=== PATIENT | male | born 2000 | race African-American/Black ===

== ENCOUNTER 2019-10-16 20:29 | Emergency (ER) | payer OTHER ==
[~2019-10-16] VITALS: Ht 188 cm; Wt 79.5 kg
[~2019-10-16 20:29] MED LIST: NOCURR
[2019-10-16] MEDS ORDERED: CeFAZolin 1 GM/DEXTROSE 100 ML IV ONE (20:40)
[2019-10-16] MEDS ORDERED: MORPHINE SULFATE 4 MG/ML SYRINGE IVP ONE (20:45)
[2019-10-16] MEDS: CeFAZolin 1 GM/DEXTROSE 50 ML IV SCH ×2 (20:45→20:47)
[2019-10-16] MEDS ORDERED: PERTUSS(ACELL),DIPH,TET VAC/PF 0.5 ML VIAL IM ONE (20:45)
[2019-10-16] MEDS ORDERED: ONDANSETRON HCL 4 MG/2 ML VIAL IVP ONE (20:45)
[2019-10-16] MEDS ORDERED: CeFAZolin 2 GM/DEXTROSE 50 ML IV ONE (20:45)
[2019-10-16 20:52] VITALS: BP 131/73
== END 2019-10-16 20:48 | disposition short-term general hospital (02) ==
LOC: EMS 20:31
DX: S81.811A Laceration without foreign body, right lower leg, initial encounter (principal); S61.411A Laceration without foreign body of right hand, initial encounter; X58.XXXA Exposure to other specified factors, initial encounter; Y93.89 Activity, other specified; Y92.89 Other specified places as the place of occurrence of the external cause; Y99.8 Other external cause status
CPT/HCPCS: 90471; 90715; 96374; 96375; 99285; J0690; 96365